=== PATIENT | male | born 1960 | race Caucasian/White ===

== ENCOUNTER 2021-04-15 11:39 | Outpatient (CLI) | payer MEDICARE, MEDICAID, SELFPAY ==
--- NOTE | ~2021-04-15 | XR_ITS ---
XR wrist RT min 3V DATE: 04/15/2021 12:07 INDICATION: Right hand pain. No recent injury. TECHNIQUE: 4 views COMPARISON: 02/16/2009 right hand FINDINGS: There is osteoarthritic change at the first carpometacarpal and triscaphe joints. There is chronic septation or ununited fracture deformity of the capitate bone with some patchy incre ased density of the proximal fragment which may indicate avascular necrosis. Consider MR evaluation o f the wrist. There is soft tissue swelling of the dorsum of the wrist. No recent fracture or dislocation, periosteal reaction or bone destruction is detected. There is mild to moderate osteopenia. IMPRESSION: Chronic septation or old ununited fracture deformity of the capitate bone with patchy scl erosis of the proximal fragment which might indicate avascular necrosis. Consider MR evaluation Osteoarthritic change at the triscaphe and first carpometacarpal joints Reviewed, dictated and finalized at location A. IMPRESSION: Chronic septation or old ununited fracture deformity of the capitat e bone with patchy sclerosis of the proximal fragment which might indicate avas cular necrosis. Consider MR evaluation Osteoarthritic change at the triscaphe and first carpometacarpal joints
--- NOTE | ~2021-04-15 | XR_ITS ---
XR hand RT min 3V DATE: 04/15/2021 12:06 INDICATION: Right hand pain. No recent injury. TECHNIQUE: 3 views COMPARISON: 02/16/2009 right hand FINDINGS: There is chronic transverse septation or ununited old fracture of the mid to distal capitat e bone with irregularity and patchy sclerotic density of the proximal portion of the capitate bones s uggesting collapse secondary to avascular necrosis. Consider MR evaluation. Diffuse osteopenia. Osteoarthritic change at the first carpometacarpal joint, triscaphe joint. No recent fracture or dislocation, periosteal reaction or bone destruction is noted. IMPRESSION: Probable old fracture deformity and avascular necrosis/collapse of the capitate bone Consider MR right wrist correlation Osteopenia Osteoarthritis Reviewed, dictated and finalized at location A.
== END 2021-04-15 11:40 | disposition home or self-care (01) ==
PROVIDERS: PCP Nurse Practitioner Family; Visit Provider Physician Assistant
DX: M79.641 Pain in right hand (principal); M25.531 Pain in right wrist; M85.841 Other specified disorders of bone density and structure, right hand; M19.041 Primary osteoarthritis, right hand; Z87.81 Personal history of (healed) traumatic fracture
CPT/HCPCS: 73110; 73130

== ENCOUNTER 2021-05-21 12:47 | Outpatient (CLI) | payer MEDICARE, MEDICAID, SELFPAY ==
--- NOTE | ~2021-05-21 | MR_ITS ---
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 Sequences performed include axial PD-weighted FSE and PD-weighted FS FSE, coronal PD-weighted F S FSE and T1-weighted SE, and sagittal PD-weighted FS FSE and PD-weighted FSE. COMPARISON: None FINDINGS: Intrinsic ligaments: The scapholunate and lunotriquetral ligaments are normal. Triangular fibrocartilage complex (TFCC): There is partial thickness tear at the radial and ulnar sides of the central fibrocartilaginous disc of the triangular fibrocartilage complex . The foveal and styloid attachments as well as the dorsal a nd volar radioulnar ligaments are normal. The ulnar collateral ligament, ulnotriquetral ligament and meniscal homologue are normal. The extensor carpi ulnaris tendon sheath is normal. Extensor wrist: Extensor tendons of the wrist are normal. No tenosynovitis. Flexor wrist: The flexor tendons of the wrist are normal. No abnormality in the carpal tunnel with normal median n erve. Guyon's canal: Guyon's canal including the ulnar nerve and artery are normal. Bones/other: Chronic nonunited fracture of the capitate which is divided into 4 fragments, 2 at the distal pole an d 2 at the proximal pole. The proximal pole fragment which comprises the majority of the articular horton rface of the lunate demonstrates increased central marrow fluid signal with loss of T1 hyperintense f at signal consistent with osteonecrosis. The resulting distal collapse of the proximal pole fragment of the capitate results in disruption of the third carpal arc with widening of the joint space betwee n the lunate and the capitate. No other fractures identified. Alignment of the remainder of the bones is normal. Moderate to severe secondary osteoarthritis at the midcarpal joint with prominent subarticular sclero sis of both sides of the articulation of the hamate with the type II lunate. There is additional high -grade chondromalacia with subarticular edema at both sides of the articulation between the distal po le of the scaphoid and the largest distal pole fragment of the capitate. Moderate osteoarthritis at t he triscaphe joint with mild subarticular edema at both sides of the joint space and mild to moderate osteoarthritis at the first carpometacarpal joint with mild subarticular edema at the trapezium. Mil d osteoarthritis at the wrist joint and several of the remaining carpal metacarpal joints. 1.8 x 0.7 x 1.3 similar ganglion cyst at the dorsal aspect of the carpus which extends between the extensor ten dons extending to the second and third digits. Additional small multilobulated ganglion cyst measurin g 9 x 5 x 5 mm extending volarly from the radial aspect of the triscaphe joint. Finally there is a 6 x 3 x 3 mm ganglion cyst along the volar margin of the radial styloid process. IMPRESSION: 1. Comminuted fractures of the capitate with some displacement of the 4 nonunited fragments resulting in shortening of the proximal to distal length of the capitate and with secondary osteonecrosis at t he proximal most fragment which comprises the intra-articular surface with respect to the lunate. 2. Moderate to severe secondary osteoarthritis at the midcarpal joint. Additional mild to moderate po lyarticular osteoarthritis at the wrist, triscaphe, first carpometacarpal and several carpal metacarp al joints. 3. 3 separate ganglion cysts, the largest a 1.8 x 0.7 x 1.3 cm cyst at the dorsal aspect of the carpu s positioned between the extensor tendons of the second and third digits. 4. Partial tear of the central fiber cartilaginous disc of the triangular fibrocartilage complex. Reviewed, dictated and finalized at location
== END 2021-05-21 12:48 | disposition home or self-care (01) ==
PROVIDERS: PCP Nurse Practitioner Family; Visit Provider Physician Assistant
DX: M87.00 Idiopathic aseptic necrosis of unspecified bone (principal); M19.031 Primary osteoarthritis, right wrist
CPT/HCPCS: 73221

== ENCOUNTER 2022-10-13 13:48 | Outpatient (CLI) | payer MEDICARE, MEDICAID, SELFPAY ==
--- NOTE | ~2022-10-13 | CT_ITS ---
EXAMINATION: CT lung screening DATE: 10/13/2022 14:11 INDICATION: Personal history of nicotine dependence, current smoker with 40 pack year history TECHNIQUE: Computed tomography (CT) of the chest was performed without intravenous contrast. The dose -length product (DLP) was 260.47 mGy-cm. Automated exposure control and iterative reconstruction tech [employer] were employed. COMPARISON: None FINDINGS: There is mild emphysema. No suspicious pulmonary nodules are identified. There are healed f ractures of the left sixth and seventh ribs with underlying atelectasis of the left lung. No patholog ically enlarged thoracic lymph nodes are identified. The heart size is normal. Calcified Bilateral hi lar and mediastinal lymph nodes are consistent with old granulomatous disease. The heart size is norm al. There is calcified coronary artery atherosclerosis. There is a partially imaged endoluminal stent in the abdominal aorta. There is moderate thoracic spondylosis. IMPRESSION: 1. Lung-RADS category 1: Negative. Continue annual screening with noncontrast low-dose chest CT in 12 months. Reviewed, dictated and finalized at location F. 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 Lung-RADS category 1: Negative. Continue annual screening with noncontrast l ow-dose chest CT in 12 months.
== END 2022-10-13 13:49 | disposition home or self-care (01) ==
PROVIDERS: PCP Nurse Practitioner Family; Visit Provider Nurse Practitioner Family
DX: F17.210 Nicotine dependence, cigarettes, uncomplicated (principal)
CPT/HCPCS: 71271

== ENCOUNTER 2023-03-27 11:18 | Emergency (ER) | payer MEDICARE, MEDICAID, SELFPAY ==
--- NOTE | ~2023-03-27 | CT_ITS ---
EXAMINATION: CT abdomen pelvis w con DATE: 03/27/2023 17:00 INDICATION: Epigastric abdominal pain. TECHNIQUE: Computed tomography (CT) of the abdomen and pelvis was performed with 100 mL Omnipaque 350 intravenous contrast. Automated exposure control and iterative reconstruction technique were employe d. The dose-length product was 937.27 mGy-cm. COMPARISON: None. FINDINGS: The visualized portions of the lung bases demonstrate mild atelectasis on the left. No pleu ral effusion. There is mild elevation of left hemidiaphragm. The heart size is normal. No pericardial effusion. The liver is normal. Calcifications in the spleen are consistent with old granulomatous di sease. The gallbladder, pancreas, adrenal glands, and kidneys are normal. There is a stent graft in a bdominal aorta and the common iliac arteries. No abdominal aortic aneurysm. There is a left inguinal hernia containing fat. The prostate is mildly enlarged. There are no dilated loops of bowel. The appe ndix is normal. There are no pathologically enlarged lymph nodes. There is no free intraperitoneal fl uid. There is an old healed fracture of left ilium. There are chronic bilateral L5 pars defects. Ther e is 9 mm anterolisthesis of L5 on S1. There is severe lower lumbar spondylosis. IMPRESSION: 1. Left inguinal hernia containing fat. Reviewed, dictated and finalized at location E.
[2023-03-27 11:33] VITALS: BP 136/69; PULSE 94; RESP 18; TEMP 36.8; O2SAT 97
[2023-03-27 11:46] LABS: Basophils Absolute Auto 0.1 K/mm3 (0.0-0.1); Basophils Percent Auto 0.5 % (0.2-1.2); Eosinophils Absolute Auto 0.1 K/mm3 (0-0.3); Eosinophils Percent Auto 0.8 % (0-4.4); Hematocrit 48.1 % (42.0-52.0); Hemoglobin 16.1 g/dL (14.0-18.0); Immature Granulocyte Absolute 0.04 K/mm3 (0.00-0.031); Immature Granulocyte Percent A 0.3 % (0-0.5); Lymphocytes Absolute Auto 2.12 K/mm3 (0.9-3.2); Lymphocytes Percent Auto 18.2 % (18.3-44.2); Mean Corpuscular HGB Conc 33.5 g/dl (32-36); Mean Corpuscular Hemoglobin 29.1 pg (26-34); Mean Platelet Volume 8.9 fl (7.4-10.4); Monocytes Absolute Auto 0.7 K/mm3 (0.1-0.6); Monocytes Percent Auto 5.8 % (2.6-8.5); Neutrophils Absolute Auto 8.6 K/mm3 (1.3-6.7); Neutrophils Percent Auto 74.4 % (45.5-73.1); Platelet Count Result 302 k/mm3 (150-375); Red Blood Count 5.53 M/mm3 (4.6-6.20); White Blood Count 11.6 K/mm3 (4.5-10.0)
[2023-03-27 12:09] LABS: Alanine Aminotransferase 22 U/L (6-50); Albumin Level 4.7 g/dL (3.5-5.1); Alkaline Phosphatase 110 U/L (38-126); Anion Gap 9 mmol/L (8-16); Aspartate Amino Transferase 23 U/L (17-59); Bilirubin,Total 0.7 mg/dL (0.2-1.3); Blood Urea Nitrogen 17 mg/dL (9-20); Calcium 9.1 mg/dL (8.4-10.2); Carbon Dioxide 27 mmol/L (22-30); Chloride 103 mmol/L (98-107); Estimated CRCL calculation 106 ml/min; Estimated Glomerular Filt Rate > 60; Glucose 161 mg/dL (65-110); Lipase 86 U/L (23-300); Potassium 3.5 mmol/L (3.4-5.0); Sodium 139 mmol/L (137-145)
[2023-03-27] MEDS: MORPHINE SULFATE (*CRX) 4 MG/ML INJ IV PUSH (15:32)
[2023-03-27] MEDS: ONDANSETRON INJ 4 MG/2 ML VIAL IV PUSH (15:32)
[2023-03-27] MEDS: SODIUM CHLORIDE 0.9% IV 1,000 ML 999 ML IV CONT (15:33)
[2023-03-27 15:35] VITALS: PULSE 84; RESP 18
[2023-03-27] MEDS: IPRATROPIUM BR 0.02% INH SOLN 0.5 MG/2.5 ML VIAL 1.5 MG INHALATION (15:35)
[2023-03-27] MEDS: LEVALBUTEROL NEB 1.25 MG/3 ML 2.5 MG INHALATION (15:35)
[2023-03-27 15:45] VITALS: PULSE 92; RESP 18
[2023-03-27 17:49] LABS: Appearance Urine Clear (Clear); Bilirubin Urine Negative (Negative); Blood Urine Negative (Negative); Color Urine Yellow (Yellow); Glucose Urine UA Negative (Negative); Ketones Urine Trace mg/dL (Negative); Leukocyte Esterase Ur Negative LEU/UL (Negative); Nitrate Urine Negative (Negative); Protein Urine Negative (Negative); Specific Grav Ur 1.023 (1.001-1.035); Urobilinogen Urine 0.2 mg/dL (<2.0)
[2023-03-27 17:54] LABS: Add Urine Microscopic? NO
--- NOTE | 2023-03-27 18:26 | ED.GENADULT ---
HPI - General Adult General Chief complaint: Abdominal Pain Stated complaint: n/v/d abdominal pain x 6days Time Seen by Provider: 03/27/23 15:21 History of Present Illness HPI narrative: Patient is a 62-year-old male who presents ER with nausea vomiting diarrhea. Ongoing for 6 days. Aches associated with epigastric/mid abdominal discomfort. No fevers or chills or sweats. No known sick contacts. No blood in stool or emesis. Reports she is being worked up for UC. Patient reports she had a colonoscopy earlier in the month. Related Data Allergies Allergy/AdvReac Type Severity Reaction Status Date / Time No Known Allergies Allergy Verified 03/27/23 15:28 Review of Systems Review of Systems: All systems reviewed & are unremarkable except as noted in HPI and below Constitutional: Constitutional: Denies chills, Reports fatigue and Denies fever(s) ENT: Denies nasal congestion and Denies sore throat Cardiovascular: Cardiovascular: Denies chest pain, Denies rapid heart rate and Denies radiating jaw, neck or arm pain Respiratory: Respiratory: Denies cough and Denies dyspnea Gastrointestinal: Gastrointestinal: Reports abdominal pain, Reports diarrhea, Reports nausea and Reports vomiting Genitourinary: Genitourinary: Denies dysuria and Denies urinary frequency PMFSH Past Medical History Medical History (Updated 03/27/23 @ 19:13 by Cesar Guerra MD) Diabetes GERD (gastroesophageal reflux disease) Hypertension Surgical History Surgical History (Updated 03/27/23 @ 19:09 by Cesar Guerra MD) H/O hernia repair History of carpal tunnel surgery Exam Narrative: GENERAL: Uncomfortable-appearing, well-nourished, and in no acute distress. HEAD: Normocephalic, atraumatic. ENT: Mucous membranes moist. NECK: Supple. CHEST: Clear to auscultation. No respiratory distress. HEART: Regular rate and rhythm. Normal peripheral pulses. ABDOMEN: Soft, nontender, nondistended. EXTREMITIES: Normal range of motion. No edema. SKIN: Warm, dry, no rash. NEURO: Alert and oriented x3. PSYCH: Normal mood and affect. Course Course Emergency Course: Patient resting comfortably. His stomach is still slightly upset. He is tolerating oral fluids. Imaging without acute process. Urine with trace ketones. Only mild leukocytosis on CBC which may be reactive to vomiting. Patient felt appropriate for discharge home. Vital Signs Vital signs: Vital Signs Temperature 98.3 F 03/27/23 11:33 Pulse Rate 94 03/27/23 11:33 Respiratory Rate 18 03/27/23 11:33 Blood Pressure 136/69 03/27/23 11:33 Pulse Oximetry 97 03/27/23 11:33 Oxygen Delivery Room Air 03/27/23 11:33 Temperature 98.3 F 03/27/23 11:33 Pulse Rate 92 03/27/23 15:45 Respiratory Rate 18 03/27/23 15:45 Blood Pressure 136/69 03/27/23 11:33 Pulse Oximetry 97 03/27/23 11:33 Oxygen Delivery Room Air 03/27/23 11:33 Medical Decision Making Vital Signs Vital Signs: Vital Signs Temperature 98.3 F 03/27/23 11:33 Pulse Rate 94 03/27/23 11:33 Respiratory Rate 18 03/27/23 11:33 Blood Pressure 136/69 03/27/23 11:33 Pulse Oximetry 97 03/27/23 11:33 Oxygen Delivery Room Air 03/27/23 11:33 Temperature 98.3 F 03/27/23 11:33 Pulse Rate 92 03/27/23 15:45 Respiratory Rate 18 03/27/23 15:45 Blood Pressure 136/69 03/27/23 11:33 Pulse Oximetry 97 03/27/23 11:33 Oxygen Delivery Room Air 03/27/23 11:33 Lab Data 03/27/23 11:38 03/27/23 11:38 Labs: Lab Results 03/27/23 03/27/23 Range/Units 11:38 17:23 WBC 11.6 H (4.5-10.0) K/mm3 RBC 5.53 (4.6-6.20) M/mm3 Hgb 16.1 (14.0-18.0) g/dL Hct 48.1 (42.0-52.0) % MCV 87.0 (80-100) fl MCH 29.1 (26-34) pg MCHC 33.5 (32-36) g/dl RDW 14.0 (11.5-14.5) % Plt Count 302 (150-375) k/mm3 MPV 8.9 (7.4-10.4) fl Immature Gran % (Auto) 0.3 (0-0.5) % Neut % (Auto) 74.4 H (4
[2023-03-27 19:17] VITALS: BP 124/76; PULSE 102; RESP 15; O2SAT 96
[2023-03-27] MEDS: BELLADONNA ALK/PHENOB ELIX 10 ML, MAG HYDROX/ALUMINUM HYD/SIMETH 30 ML, LIDOCAINE HCL 2... PO (19:26)
== END 2023-03-27 19:32 | disposition home or self-care (01) ==
PROVIDERS: Emergency Medicine; Emergency Provider Emergency Medicine; PCP Nurse Practitioner Family
DX: K52.9 Noninfective gastroenteritis and colitis, unspecified (principal); E11.9 Type 2 diabetes mellitus without complications; I10 Essential (primary) hypertension; K21.9 Gastro-esophageal reflux disease without esophagitis
CPT/HCPCS: 36415; 74177; 80053; 81003; 83690; 85025; 94640; 96361; 96374; 96375; 99284; A9270; J2270; J2405; J7030; Q9967

== ENCOUNTER 2023-04-22 08:14 | Outpatient (CLI) | payer MEDICARE, MEDICAID, SELFPAY ==
--- NOTE | ~2023-04-22 | XR_ITS ---
EXAMINATION: XR_ENEMABAC_CR DATE: 04/22/2023 09:06 INDICATION: Incomplete colonoscopy. TECHNIQUE: A campus executive director radiograph was obtained. A catheter was inserted into the patient's rectum. Contra st was infused by gravity. Gas was infused by hand pump. Fluoroscopic spot images and conventional ra diographs were obtained. Fluoroscopy exposure time was 0.4 minutes. The total number of images was 40 . COMPARISON: CT abdomen and pelvis 03/27/2023 FINDINGS: There is a stent graft in abdominal aorta and common iliac arteries. There are surgical cli ps in left upper quadrant. There is no mass or stricture. There is no dilated bowel. IMPRESSION: 1. Normal double-contrast enema. Reviewed, dictated and finalized at location A.
== END 2023-04-22 08:15 | disposition home or self-care (01) ==
PROVIDERS: PCP Nurse Practitioner Family; Visit Provider Internal Medicine Gastroenterology
DX: Z53.09 Procedure and treatment not carried out because of other contraindication (principal)
CPT/HCPCS: 74280

== ENCOUNTER 2024-06-06 10:21 | Outpatient (CLI) | payer MEDICARE, MEDICAID, SELFPAY ==
--- NOTE | ~2024-06-06 | CT_ITS ---
CT Scan of the Chest without Contrast: Clinical Indication: Lung cancer screening, nicotine dependence Technique: Contiguous sections were acquired throughout the chest without intravenous contrast. Dose reduction technique was used on this scan by utilizing automated exposure control and iterative recon struction technique. The dose-length product (DLP) was 147.29 mGy-cm. COMPARISON: 1422 Findings: There is no evidence of any significant mediastinal, hilar or axillary lymphadenopathy. Coronary radha ry calcium cages are present. There is no evidence of pleural or pericardial effusion. Several calcified right upper lobe granulomas are noted. There is chronic scarring at the lingular re gion. Images through the upper abdomen reveal no abnormalities. Impression: Lung RADS 2: Benign appearance. 12 month follow-up screening CT advised. Reviewed, dictated and finalized at location . Impression: Lung RADS 2: Benign appearance. 12 month follow-up screening CT advised.
== END 2024-06-06 10:22 | disposition home or self-care (01) ==
LOC: ANHIMG 10:28
PROVIDERS: PCP Nurse Practitioner Family; Visit Provider Student in an Organized Health Care Education/Training Program
DX: Z12.2 Encounter for screening for malignant neoplasm of respiratory organs (principal); Z87.891 Personal history of nicotine dependence
CPT/HCPCS: 71271

== ENCOUNTER 2025-08-14 15:46 | Outpatient (CLI) | payer MEDICARE, MEDICAID, SELFPAY ==
--- NOTE | ~2025-08-14 | CT_ITS ---
EXAMINATION:CT lung screening DATE: 08/14/2025 16:07 INDICATION: Personal history of nicotine dependence. Current smoker. TECHNIQUE: Computed tomography (CT) of the chest was performed without intravenous contrast. Automated exposure control and iterative reconstruction technique were employed. The dose-length product (DLP) was 142.19 mGy-cm. COMPARISON: Chest CT 06/06/2024 FINDINGS: There is mild emphysema. There is chronic mild scarring in peripheral left upper lobe and left lower lobe. Calcified right lung nodules and calcified right hilar lymph nodes are consistent with old granulomatous disease. No pleural effusion. The heart size is normal. There are coronary artery calcifications. No pericardial effusion. Calcifications in the spleen are consistent with old granulomatous disease. There are old healed left rib fractures. There is severe cervical spondylosis and mild thoracic spondylosis. IMPRESSION: 1. Lung-RADS category 2: Benign appearance or behavior. Continue annual screening with noncontrast low-dose chest CT in 12 months. Reviewed, dictated and finalized at location E. IMPRESSION: 1. Lung-RADS category 2: Benign appearance or behavior. Continue annual screeni ng with noncontrast low-dose chest CT in 12 months.
== END 2025-08-14 15:47 | disposition home or self-care (01) ==
LOC: MICIMG 15:48
PROVIDERS: PCP Nurse Practitioner Family; Visit Provider Nurse Practitioner Family
DX: Z12.2 Encounter for screening for malignant neoplasm of respiratory organs (principal); F17.210 Nicotine dependence, cigarettes, uncomplicated
CPT/HCPCS: 71271